=== PATIENT | female | born 1955 | race African-American/Black ===

== ENCOUNTER → 2018-07-21 | Day surgery (SDC) | payer BC ==
[~2018-07-21] MED LIST: HYDR-2761 PO; HYDROmorphone 2 MG/ML VIAL IV PRN; IV RINGERS,LACTATED 1000ML 1,000 ML IV SCH; LIDOCAINE 1% PF 2 ML VIAL. ID PRN; LIDOCAINE 2% PF 5 ML VIAL. ONE; LOVA10TA PO; MORPHINE SULFATE 2 MG/ML VIAL. IV PRN; ONDANSETRON PF 4 MG/2 ML VIAL. IV PRN; PROCHLORPERAZINE 10 MG/2 ML VIAL. IV PRN; PROPOFOL 40 ML IV ONE; fentaNYL PF VIAL 100 MCG/2 ML VIAL IV PRN
[2018-07-21 09:37] VITALS: BP 128/56
--- NOTE | 2018-07-22 03:01 | CONS ---
DATE OF CONSULTATION: 07/21/2018 REFERRING PHYSICIAN: Dr. Shannon Miller. REASON FOR CONSULTATION: Colorectal screening. HISTORY OF PRESENT ILLNESS: This is a 63-year-old -[place] female with past medical history significant for hyperlipidemia, seen for screening colon exam. Bowel habits are regular without diarrhea or constipation. There has been no melena and/or hematochezia. Weight and appetite are stable and she is otherwise without additional complaints. PAST MEDICAL HISTORY: Significant for hyperlipidemia. ALLERGIES: None. MEDICATIONS: Include lovastatin. FAMILY AND SOCIAL HISTORY: Hypertension with her brother. She is a nondrinker, nonsmoker. PAST SURGICAL HISTORY: None. REVIEW OF SYSTEMS: Per records. PHYSICAL EXAMINATION: GENERAL: Reveals a well-nourished, well-developed -[place] female, who is alert and cooperative in no acute distress. VITAL SIGNS: Temperature 97, pulse 64, respirations 18. HEENT: Normocephalic and atraumatic head. Pupils and extraocular movements are not tested. Sclerae anicteric. NECK: Supple. LUNGS: Clear. CARDIOVASCULAR: Reveals S1, S2 without S3, S4 or appreciable murmur. ABDOMEN: Soft abdomen, normal bowel sounds without appreciable hepatosplenomegaly. EXTREMITIES: Reveals no cyanosis, clubbing or edema. IMPRESSION AND PLAN: Colorectal screening is warranted at this time. Risks and benefits of procedure including risk of hemorrhage and perforation during the operation have been discussed and is willing to proceed at this time. BIMAL CARNEY MD DR: STEVEN/alexandria JOB#: [id number] / [id number]
== END ==
LOC: ENDOS 08:11
PROVIDERS: ATTEND Internal Medicine Gastroenterology
DX: Z12.11 Encounter for screening for malignant neoplasm of colon (principal); K64.0 First degree hemorrhoids; K63.89 Other specified diseases of intestine; E78.5 Hyperlipidemia, unspecified; Z79.899 Other long term (current) drug therapy; Z82.49 Family history of ischemic heart disease and other diseases of the circulatory system
CPT/HCPCS: 45378; J2001; J2704

== ENCOUNTER 2019-04-21 17:55 | Emergency (ER) | payer BC ==
[~2019-04-21] VITALS: Ht 165.1 cm; Wt 94.0 kg
[~2019-04-21 17:55] MED LIST changes: -HYDROmorphone 2 MG/ML VIAL IV PRN; -IV RINGERS,LACTATED 1000ML 1,000 ML IV SCH; -LIDOCAINE 1% PF 2 ML VIAL. ID PRN; -LIDOCAINE 2% PF 5 ML VIAL. ONE; -MORPHINE SULFATE 2 MG/ML VIAL. IV PRN; -ONDANSETRON PF 4 MG/2 ML VIAL. IV PRN; -PROCHLORPERAZINE 10 MG/2 ML VIAL. IV PRN; -PROPOFOL 40 ML IV ONE; -fentaNYL PF VIAL 100 MCG/2 ML VIAL IV PRN
[2019-04-21] MEDS ORDERED: IV NORMAL SALINE 1000ML BAG 1,000 ML IV SCH (18:16)
--- NOTE | 2019-04-21 18:21 | PHYS DOC ---
Past Medical History Past Medical History: No Pertinent History Past Surgical History: No Surgical History Smoking Status: Never Smoker Alcohol Use: None Drug Use: None Adult General Chief Complaint Chief Complaint: ABDOMINAL PAIN HPI HPI Patient is a 64 year old female who presents with complaint of lower abdominal pain with nausea and vomiting that started last night. Patient rates pain at a 7 out of 10 and describes pain as cramping in nature. She denies any diarrhea. She also denies any fever, chest pain or shortness of breath. Patient states that symptoms are worsened with eating and drinking. She states that nothing is improving her symptoms.[] Review of Systems Review of Systems Constitutional: Denies fever or chills [] Respiratory: Denies cough or shortness of breath [] Cardiovascular: No additional information not addressed in HPI [] GI: Complains with lower abdominal pain with nausea and vomiting. Denies diarrhea [] : Denies dysuria or hematuria [] Musculoskeletal: Denies back pain or joint pain [] Integument: Denies rash or skin lesions [] All other systems were reviewed and found to be within normal limits, except as documented in this note. Current Medications Current Medications Current Medications Medications (Trade) Dose Ordered Sig/Luz Maria Start Time Stop Time Status Last Admin Dose Admin Fentanyl Citrate (Fentanyl 2ml Vial) 25 mcg PRN Q15MIN PRN 04/21/19 18:30 04/22/19 18:29 04/21/19 18:39 25 MCG Iohexol (Omnipaque 300 Mg/ml) 75 ml 1X ONCE 04/21/19 19:45 04/21/19 19:46 DC 04/21/19 20:02 75 ML Ondansetron HCl (Zofran) 4 mg 1X ONCE 04/21/19 18:30 04/21/19 18:31 DC 04/21/19 18:39 4 MG Sodium Chloride 1,000 ml @ 1,000 mls/hr Q1H 04/21/19 18:16 04/21/19 19:15 DC 04/21/19 18:39 1,000 MLS/HR Allergies Allergies Allergies Coded Allergies Type Severity Reaction Last Updated Verified No Known Drug Allergies 07/21/18 No Physical Exam Physical Exam Constitutional: Well developed, well nourished, no acute distress, non-toxic appearance. [] HENT: Normocephalic, atraumatic, bilateral external ears normal, oropharynx moist, no oral exudates, nose normal. [] Eyes: PERRLA, EOMI, conjunctiva normal, no discharge. [] Neck: Normal range of motion, no tenderness, supple, no stridor. [] Cardiovascular: Regular rate and rhythm[] Lungs & Thorax: Bilateral breath sounds clear to auscultation [] Abdomen: Bowel sounds normal, soft, no tenderness. [] Skin: Warm, dry, no erythema, no rash. [] Extremities: No tenderness, no cyanosis, no clubbing, ROM intact. [] Neurologic: Alert and oriented X 3, no focal deficits noted. [] Current Patient Data Vital Signs Vital Signs Date Time Temp Pulse Resp B/P (MAP) Pulse Ox O2 Delivery O2 Flow Rate FiO2 04/21/19 18:39 18 100 04/21/19 18:10 97.7 64 146/65 (92) Room Air 97.7 Lab Values Laboratory Tests Test 04/21/19 18:10 White Blood Count 9.6 x10^3/uL (4.0-11.0) Red Blood Count 4.39 x10^6/uL (3.50-5.40) Hemoglobin 13.5 g/dL (12.0-15.5) Hematocrit 39.5 % (36.0-47.0) Mean Corpuscular Volume 90 fL (79-100) Mean Corpuscular Hemoglobin 31 pg (25-35) Mean Corpuscular Hemoglobin Concent 34 g/dL (31-37) Red Cell Distribution Width 13.3 % (11.5-14.5) Platelet Count 243 x10^3/uL (140-400) Neutrophils (%) (Auto) 78 % (31-73) H Lymphocytes (%) (Auto) 15 % (24-48) L Monocytes (%) (Auto) 5 % (0-9) Eosinophils (%) (Auto) 1 % (0-3) Basophils (%) (Auto) 1 % (0-3) Neutrophils # (Auto) 7.4 x10^3/uL (1.8-7.7) Lymphocytes # (Auto) 1.5 x10^3/uL (1.0-4.8) Monocytes # (Auto) 0.5 x10^3/uL (0.0-1.1) Eosinophils # (Auto) 0.1 x10^3/uL (0.0-0.7) Basophils # (Auto) 0.1 x10^3/uL (0.0-0.2) Urine Collection Type Unknown Urine Color Yellow Urine Clarity Clear Urine pH 6.5 Urine Specific Pur[place] 1.020 Urine Protein Negative mg/dL (NEG-TRACE) Urine Glucose (UA) Negative mg/dL (NEG) Urine Ketones (Stick) Trace mg/dL (NEG) Urine Blood Negative (NEG) Urine Nitrite Negative (NEG) Urine Bilirubin Negative (NEG) Urine Urobilinogen Dipstick 0.2 mg/dL (0.2 mg/dL) Urine Leukocyte Esterase Negative (NEG) Urine RBC Occ /HPF (0-2) Urine WBC 5-10 /HPF (0-4) Urine Squamous Epithelial Cells Mod /LPF Urine Bacteria Moderate /HPF (0-FEW) Urine Mucus Mod /LPF Sodium Level 136 mmol/L (136-145) Potassium Level 3.7 mmol/L (3.5-5.1) Chloride Level 100 mmol/L (98-107) Carbon Dioxide Level 29 mmol/L (21-32) Anion Gap 7 (6-14) Blood Urea Nitrogen 8 mg/dL (7-20) Creatinine 0.7 mg/dL (0.6-1.0) Estimated GFR (Cockcroft-Gault) 102.3 BUN/Creatinine Ratio 11 (6-20) Glucose Level 140 mg/dL (70-99) H Calcium Level 9.3 mg/dL (8.5-10.1) Total Bilirubin 0.4 mg/dL (0.2-1.0) Aspartate Amino Transferase (AST) 18 U/L (15-37) Alanine Aminotransferase (ALT) 22 U/L (14-59) Alkaline Phosphatase 70 U/L (46-116) Total Protein 8.2 g/dL (6.4-8.2) Albumin 3.9 g/dL (3.4-5.0) Albumin/Globulin Ratio 0.9 (1.0-1.7) L Lipase 95 U/L (73-393) Laboratory Tests 04/21/19 18:10 Laboratory Tests 04/21/19 18:10 EKG EKG [] Radiology/Procedures Radiology/Procedures [] Impressions: PROCEDURE: CT ABD PELV W/ IV CONTRST ONLY CT abdomen and pelvis with contrast PQRS statement: CT scans at this facility use dose reduction including either automated exposure control, iterative reconstructions, and /or weight based radiation dosing via mA and kV modification when appropriate to reduce radiation dose to as low as reasonably achievable. Contrast: 75 mL Omnipaque 300 intravenous contrast. HISTORY: Lower abdominal pain. Abdomen findings: Discoid atelectasis left lower lobe. Lumbar disc disease may contribute to spinal canal stenoses. Distal right renal artery 8mm peripherally calcified aneurysm. There may be a similar sized peripherally calcified splenic artery aneurysm as well. Liver, gallbladder, spleen, adrenal glands, pancreas unremarkable. Mild distended extrarenal pelves and ureters bilaterally no striated or delayed nephrogram or renal edema evident. Duodenal 3 cm diverticulum. No bowel obstruction. The appendix is negative. Luminal collapse and wall thickening throughout the large bowel most likely colitis. No abdominal fluid or adenopathy. 3 cm fatty umbilical abdominal wall hernia. Pelvis findings: Uterine calcifications at the fundus may be degenerated fibroids. Ovaries, bladder and bones are unremarkable. Rectosigmoid wall thickening. IMPRESSION: 1. Pancolitis. 2. Appendix is negative. 3. 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 Electronically signed by: Kyler Delgado MD (04/21/2019 8:12 PM) [id number] Course & Med Decision Making Course & Med Decision Making Pertinent Labs and Imaging studies reviewed. (See chart for details) [] Dragon Disclaimer Dragon Disclaimer This electronic medical record was generated, in whole or in part, using a voice recognition dictation system. Departure Departure Impression: Primary Impression: Colitis Disposition: 01 HOME, SELF-CARE Condition: STABLE Referrals: KLARISSA FLORES MD (PCP) Patient Instructions: Colitis Scripts Ondansetron (ONDANSETRON ODT) 4 Mg Tab.rapdis 1 TAB PO PRN Q6-8HRS PRN for NAUSEA, #15 TAB Prov: MARK OTTO Jr. DO 04/21/19 Hydrocodone/Apap 5-325 (NORCO 5-325 TABLET) 1 Each Tablet 1-2 EACH PO PRN Q6HRS PRN for PAIN, #15 as needed for pain Prov: MARK OTTO Jr. DO 04/21/19 Metronidazole (FLAGYL) 500 Mg Tablet 1 TAB PO TID, #30 TAB Prov: MARK OTTO Jr. DO 04/21/19 Ciprofloxacin Hcl (CIPROFLOXACIN HCL) 500 Mg Tablet 1 TAB PO BID, #20 TAB Prov: MARK OTTO Jr. DO 04/21/19 MARK OTTO Jr. DO Apr 21, 2019 18:21
[2019-04-21] MEDS ORDERED: fentaNYL PF VIAL 100 MCG/2 ML VIAL IV PRN (18:30)
[2019-04-21] MEDS ORDERED: ONDANSETRON PF 4 MG/2 ML VIAL. IV ONE (18:30)
[2019-04-21 18:45] LABS: BASO # 0.1 x10^3/uL (0.0-0.2); BASO % 1 % (0-3); EOS # 0.1 x10^3/uL (0.0-0.7); EOS % 1 % (0-3); HEMATOCRIT 39.5 % (36.0-47.0); HEMOGLOBIN 13.5 g/dL (12.0-15.5); LYMPH # 1.5 x10^3/uL (1.0-4.8); LYMPH % 15 % (24-48); MEAN CORPUSCULAR HEMOGLOBIN 31 pg (25-35); MEAN CORPUSCULAR HGB CONC 34 g/dL (31-37); MEAN CORPUSCULAR VOLUME 90 fL (79-100); MONO # 0.5 x10^3/uL (0.0-1.1); MONO % 5 % (0-9); NEUT # 7.4 x10^3/uL (1.8-7.7); NEUT % 78 % (31-73); PLATELET COUNT 243 x10^3/uL (140-400); RED BLOOD COUNT 4.39 x10^6/uL (3.50-5.40); RED CELL DISTRIBUTION WIDTH 13.3 % (11.5-14.5); WHITE BLOOD COUNT 9.6 x10^3/uL (4.0-11.0)
[2019-04-21 18:47] LABS: BILIRUBIN,URINE NEGATIVE (NEG); CLARITY,URINE CLEAR; COLOR,URINE YELLOW; NITRITE,URINE NEGATIVE (NEG); PH,URINE 6.5; PROTEIN,URINE NEGATIVE (NEG-TRACE); UROBILINOGEN,URINE 0.2 mg/dL (0.2 mg/dL)
[2019-04-21 18:55] LABS: CALCIUM 9.3 mg/dL (8.5-10.1); CREATININE 0.7 mg/dL (0.6-1.0); GFR 102.3; POTASSIUM 3.7 mmol/L (3.5-5.1)
[2019-04-21 19:00] LABS: ALBUMIN 3.9 g/dL (3.4-5.0); ALBUMIN/GLOBULIN RATIO 0.9 (1.0-1.7); TOTAL BILIRUBIN 0.4 mg/dL (0.2-1.0); TOTAL PROTEIN 8.2 g/dL (6.4-8.2)
[2019-04-21 19:08] LABS: SQUAMOUS EPITHELIAL CELL,UR MOD /LPF
[2019-04-21 19:09] LABS: BACTERIA,URINE MODERATE /HPF (0-FEW); RBC,URINE OCC /HPF (0-2)
[2019-04-21] MEDS ORDERED: IOHEXOL 300 MG/ML 100ML VIAL. IV ONE (19:45)
--- NOTE | 2019-04-21 20:14 | RAD ---
CT abdomen and pelvis with contrast PQRS statement: CT scans at this facility use dose reduction including either automated exposure control, iterative reconstructions, and /or weight based radiation dosing via mA and kV modification when appropriate to reduce radiation dose to as low as reasonably achievable. Contrast: 75 mL Omnipaque 300 intravenous contrast. HISTORY: Lower abdominal pain. Abdomen findings: Discoid atelectasis left lower lobe. Lumbar disc disease may contribute to spinal canal stenoses. Distal right renal artery 8mm peripherally calcified aneurysm. There may be a similar sized peripherally calcified splenic artery aneurysm as well. Liver, gallbladder, spleen, adrenal glands, pancreas unremarkable. Mild distended extrarenal pelves and ureters bilaterally no striated or delayed nephrogram or renal edema evident. Duodenal 3 cm diverticulum. No bowel obstruction. The appendix is negative. Luminal collapse and wall thickening throughout the large bowel most likely colitis. No abdominal fluid or adenopathy. 3 cm fatty umbilical abdominal wall hernia. Pelvis findings: Uterine calcifications at the fundus may be degenerated fibroids. Ovaries, bladder and bones are unremarkable. Rectosigmoid wall thickening. IMPRESSION: 1. Pancolitis. 2. Appendix is negative. 3. 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 Electronically signed by: Kyler Delgado MD (04/21/2019 8:12 PM) [id number]
[2019-04-21] MEDS ORDERED: HYDR-3164 PO (20:35)
[2019-04-21] MEDS ORDERED: METR500T PO (20:35)
[2019-04-21] MEDS ORDERED: ONDA4TAB12 PO (20:35)
[2019-04-21] MEDS ORDERED: CIPR500T PO (20:35)
[2019-04-21 20:40] VITALS: BP 133/61
== END 2019-04-21 21:19 | disposition home or self-care (01) ==
LOC: ER 17:55
DX: K52.9 Noninfective gastroenteritis and colitis, unspecified (principal); K51.00 Ulcerative (chronic) pancolitis without complications
CPT/HCPCS: 36415; 74177; 80053; 81001; 83690; 85025; 87086; 96361; 96374; 96375; 99285; J2405; J3010; J7030; Q9967